=== PATIENT | female | born 1995 | race Caucasian/White ===

== ENCOUNTER 2020-08-10 19:23 | Inpatient (IN) | payer BC, OTHER ==
[~2020-08-10 19:23] MED LIST: Iopamidol 370 76% 50 ML VIAL FS ONE; Iopamidol-370 76% 500 ML 1 ML ONE
[2020-08-10 20:02] LABS: #Lymphocytes 1.1 thou/uL (1.20-3.40); #Monocytes 0.9 thou/uL (0.11-0.59); #Neutrophils 17.7 thou/uL (1.40-6.50); %Eosinophils 0.1 % (0.0-10.0); %Lymphocytes 5.4 % (21.0-51.0); %Monocytes 4.8 % (0.0-10.0); %Neutrophils 89.7 % (42.0-75.0); Hemoglobin 14.3 g/dL (12.0-16.0); Mean Corpuscular HGB CONC 34.4 g/dL (32.0-36.0); Mean Platelet Volume 7.5 fL (7.4-10.4); Platelet Count 261 thou/uL (130-400); RBC Distribution Width 10.6 % (11.5-14.5); Red Blood Cell (RBC) Count 4.46 mill/uL (4.20-5.40); White Blood Cell (WBC) Count 19.7 thou/uL (4.8-10.8)
[2020-08-10] MEDS ORDERED: Ondansetron PF 4 MG/2 ML Vial ONE (20:08)
[2020-08-10] MEDS ORDERED: Morphine 4 MG/ML VIAL ONE ×3 (20:08→23:22)
[2020-08-10 20:09] LABS: Bilirubin Negative (Negative); Blood, Urine 2+ (Negative); Clarity Turbid (Clear); Glucose, Urine (Dipstick) Normal (Negative); Ketone, Urine 80 mg/dL (Negative); Leukocyte 75 Leu/uL (Negative); Nitrite Negative (Negative); Pregnancy Test - Urine (BHCG) Negative (Negative); Pregu Control Background? CLEAR/WHITE (CLR/WHITE); Pregu Control Bar Appear? YES (CONTROL BAR); Protein, Urine (Dipstick) 30 mg/dL (Neg-Trace); RBC/HPF 21-50 HPF (0-3); Specific Gravity 1.026 (1.002-1.036); Specific Gravity, Urine 1.026 (1.002-1.036); Squamous Epithelial 21-50 HPF (0-3); Urobilinogen Normal mg/dL (Less than 2); pH, Urine 7.5 (5.0-9.0)
[2020-08-10 20:19] LABS: Bacteria/HPF 1+ HPF (None Seen)
[2020-08-10 20:24] LABS: ALT (SGPT) 8 U/L (8-55); AST (SGOT) 13 U/L (5-34); Albumin 4.3 g/dL (3.5-5.0); Alkaline Phosphatase 73 U/L (40-110); Anion Gap 13 mmol/L (10-20); BUN (Urea Nitrogen) 10 mg/dL (7.0-18.7); Bilirubin, Total 0.9 mg/dL (0.2-1.2); Calc. Creatinine Clearance 0 mL/min (70-130); Carbon Dioxide 23 mmol/L (22-29); Chloride 103 mmol/L (98-107); Estimated GFR-MDRD Greater than 90; Globulin 2.9 g/dL (2.4-3.5); Glucose 139 mg/dL (70-105); Lipase 11 U/L (8-78); Potassium 3.5 mmol/L (3.5-5.1); Protein, Total 7.2 g/dL (6.0-8.3); Sodium 135 mmol/L (136-145)
--- NOTE | 2020-08-10 22:08 | CT ---
CT ABDOMEN AND PELVIS PERFORMED WITH INTRAVENOUS CONTRAST ENHANCEMENT: 08/10/20 HISTORY: Right lower quadrant abdominal pain. Diarrhea. The lung bases are clear. The liver and spleen show no focal abnormalities. The pancreas and gallbladder regions appear unremar kable. Right and left adrenal glands and right and left kidneys are normal in size. No significant periaorti c or mesenteric adenopathy. CT OF PELVIS PERFORMED WITH CONTRAST ENHANCEMENT: Inflammatory change is seen associated with the appendix. No abscess or fluid collection. IMPRESSION: CT findings compatible with appendicitis. POS: SANNA
[2020-08-10] MEDS ORDERED: Piperacillin/Tazobactam 3.375 GM VIAL ONE ×2 (23:18)
[2020-08-11] MEDS ORDERED: Morphine 2 MG/ML VIAL SLOW IVP PRN ×2 (00:37→17:32)
[2020-08-11] MEDS ORDERED: Ondansetron PF 4 MG/2 ML Vial IVP PRN (00:45)
[2020-08-11] MEDS ORDERED: Ondansetron ODT 4 MG TAB SL PRN (00:45)
[2020-08-11 00:49] VITALS: BMI 21.4
[2020-08-11] MEDS: Morphine 4 MG/ML VIAL SLOW IVP PRN ×2 (00:55→09:32)
[2020-08-11] MEDS: Lactated Ringer's 1,000 ML IV SCH ×2 (01:00→09:37)
[2020-08-11 04:45] VITALS: TEMP 98.7
[2020-08-11] MEDS ORDERED: Piperacillin/Tazobactam 3.375 GM in Sodium Chloride 0.9% 100 ML IVPB SCH (06:00)
[2020-08-11 07:42] VITALS: BP 118/74
[2020-08-11 08:03] LABS: SARS-CoV-2 NAA Rapid Test Not Detected (NotDetected)
--- NOTE | 2020-08-11 08:04 | PDOC.H&P ---
- History & Physical Encounter Time: 08/11/20 Encounter Time: 07:57 Ms. Leonard Christianson is a 24 year old female that presented to the ED last night around 7 PM due to abdominal pain, vomiting, and diarrhea. She reports that her pain started yesterday morning around 10 AM and felt like gas pains and was sharp/stabbing in quality. She tried to take Mag Citrate and stool softeners to alleviate the pain, but it did not help. She rated her pain at 6/10 at that time. The pain remained constant throughout the day and was primarily localized around her umbilicus. Toward the evening she began having nausea, vomiting, and diarrhea. She describes the vomit as just having whatever she had eaten for breakfast and denies any blood in the vomit. Her pain had increased to a 9/10 at this time and moved to her RLQ, and that's when she came to the ER. She denies having any fevers over the course of this event and has not had any similar events previously. She deniese radiation of her pain, hematochezia, and hematemesis She has an unremarkable personal medical history. She has a family history of hypertension on her maternal side of the family. Her surgical history includes an ACL repair due to an avulsion fracture in a skiing accident. She denies any other hospitalizations. She denies smoking and using recreational drugs. She drinks occasionally. 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 She is not taking any medications currently and is allergic to promethazine. She has been NPO since yesterday evening. Overnight her pain was able to be managed with morphine and she was able to sleep. She remained afebrile and denied any nausea or vomiting overnight. She does report having some diarrhea overnight. Physical Exam - Physical Exam General Appearance: no apparent distress Eyes, Ears, Nose, Throat Exam: PERRL/EOMI Respiratory: chest non-tender, normal breath sounds, no respiratory distress Cardiovascular/Chest: normal peripheral pulses, regular rate, rhythm, no edema Gastrointestinal/Abdominal: normal bowel sounds, soft, guarding (voluntary guarding), tenderness (RLQ tenderness around McBurney's point radiating to the umbilicus), other (positive Rovsing's sign) Skin Exam: normal color
[2020-08-11] MEDS ORDERED: FLU VACC QS2020-21(6MOS UP)/PF 60 MCG/0.5 ML SYRINGE IM ONE (09:00)
--- NOTE | 2020-08-11 09:36 | HP ---
CHIEF COMPLAINT: Right lower quadrant abdominal pain. HISTORY OF PRESENT ILLNESS: The patient is a previously healthy 24-year-old white female. She had onset of pain yesterday morning about 10 o'clock. It progressed throughout the day. The pain initially was periumbilical and radiated towards the right lower quadrant. She developed nausea and vomiting and presented to the emergency room. In the emergency room, she was noted to have significant leukocytosis and a CT scan was obtained, which was felt to be consistent acute appendicitis. She was given intravenous antibiotics, made n.p.o. and given fluid rehydration, admitted to my service. This morning, she tells me she feels much better. She specifically denies any urinary symptoms. PAST MEDICAL HISTORY: Otherwise unremarkable. PAST SURGICAL HISTORY: Knee surgery for ACL repair. MEDICATIONS: None. ALLERGIES: PROMETHAZINE. PERSONAL AND SOCIAL HISTORY: She is single with no children. 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 She does not smoke and drinks alcohol occasionally. REVIEW OF SYSTEMS: A 10 system review is otherwise negative. FAMILY HISTORY: Noncontributory. PHYSICAL EXAMINATION: VITAL SIGNS: She is afebrile with normal vital signs this morning. GENERAL: She is well-developed, well-nourished, pleasant white female, resting in bed and in no acute distress. Mother is present at bedside. HEAD, EYES, EARS, NOSE, AND THROAT: Unremarkable. NECK: Supple without mass or tenderness. LUNGS: Clear to auscultation throughout. CARDIAC: Regular rate and rhythm without murmur. ABDOMEN: Soft with normoactive bowel sounds. She has a mild Rovsing sign and she does have tenderness to deeper palpation on the right lower quadrant, but without significant guarding. EXTREMITIES: Unremarkable. LABORATORY DATA: White blood cell count is elevated at 19.7, hemoglobin is normal at 14. She does have left shift. Her comprehensive metabolic panel is essentially unremarkable. Her urinalysis reveals turbid urine with 20-50 white blood cells, however, she also has elevated squamous cells, potentially indicating a dirty sample. She tells me this was a clean-catch. Her test is negative. ASSESSMENT: The patient with examination consistent with appendicitis. Her CT scan is a little more difficult to interpret than a typical appendicitis. I discussed with her the possibility that this could be a urinary etiology of her discomfort, however, I would still recommend a laparoscopic appendectomy. I discussed the operation in detail with the patient as well as potential risks. She understands and agrees to proceed with surgery. This has been scheduled for today. Job ID: [id number]
[2020-08-11] MEDS ORDERED: Lidocaine 1% PF 5 ML VIAL ONE (11:14)
[2020-08-11] MEDS ORDERED: Rocuronium Bromide 10 MG/ML (10ML VIAL) ONE (11:14)
[2020-08-11] MEDS ORDERED: Succinylcholine Chloride 20 MG/ML 10 ml SYRINGE FS ONE (11:14)
[2020-08-11] MEDS ORDERED: PROPOFOL 200 MG/20 ML VIAL ONE (11:14)
[2020-08-11] MEDS ORDERED: Dexamethasone 20 MG/5 ML VIAL ONE (11:14)
[2020-08-11] MEDS ORDERED: Glycopyrrolate 0.2 MG/ML 5 ML SYRINGE ONE (11:14)
[2020-08-11] MEDS ORDERED: Ondansetron PF 4 MG/2 ML Vial ONE (11:14)
[2020-08-11] MEDS ORDERED: Fentanyl 100 MCG/2 ML VIAL ONE ×2 (12:43→14:34)
[2020-08-11] MEDS ORDERED: Bupivacaine/Epinephrine 0.25% 30 ML VIAL ONE (12:44)
[2020-08-11] MEDS ORDERED: Piperacillin/Tazobactam 3.375 GM VIAL ONE (12:55)
[2020-08-11] MEDS ORDERED: Sodium Chloride 0.9% 100 ML ONE (12:55)
[2020-08-11] MEDS ORDERED: Meperidine HCl/PF 25 MG/ML VIAL SLOW IVP PRN (14:07)
[2020-08-11] MEDS ORDERED: Ondansetron HCl/PF 4 MG/2 ML Vial IVP PRN (14:07)
[2020-08-11] MEDS ORDERED: Meperidine HCl/PF 25 MG/ML VIAL ONE (14:27)
[2020-08-11] MEDS ORDERED: HYDROcodone/Acetaminophen 7.5/325 mg Tablet PO PRN ×2 (17:34)
--- NOTE | 2020-08-12 09:28 | OP ---
DATE OF PROCEDURE: 08/11/2020 PREOPERATIVE DIAGNOSIS: Acute appendicitis. POSTOPERATIVE DIAGNOSIS: Acute appendicitis. PROCEDURE PERFORMED: Laparoscopic appendectomy. ANESTHESIA: General endotracheal. INDICATIONS: The patient is a 24-year-old white female. She presented to the hospital with findings consistent with acute appendicitis and was taken to the operating room at this time for appendectomy. DESCRIPTION OF OPERATION: Informed consent was obtained. The patient was taken to the operating room, where general endotracheal anesthesia was obtained with the patient in supine position. Abdomen was prepped with ChloraPrep and draped in sterile fashion. Local anesthetic was infiltrated. A 5 mm infraumbilical incision was created, through which a Veress needle was passed in the peritoneal cavity and pneumoperitoneum was established using carbon dioxide up to pressure of 15 mmHg. A 5 mm trocar port site was passed through the same incision. Laparoscopic camera was passed through this port. Under direct vision, 2 additional ports were placed including a 5 mm left lower quadrant port and a 12 mm suprapubic port. Attention was turned to the abdominal cavity. There was noted to be some bloody appearing fluid in the pelvis. This was aspirated. There was no evidence of purulence. At that point, placed her into a significant Trendelenburg position and examined the pelvic organs. There were no adhesions of bowel within the pelvis. She did have a fairly redundant sigmoid colon. The uterus, fallopian tubes, and ovaries were all visualized and found to be entirely within normal limits. There was no cystic structures noted on either ovary and no evidence of infection involving either fallopian tube. Attention was turned to the appendix. The patient had obvious appendicitis with serosal changes and pending gangrene. There was no evidence of perforation or purulence. The entire appendix was markedly dilated and inflamed and very obviously associated with acute appendicitis. Mesoappendix was grasped and taken down using electrocautery to skeletonize the base of the appendix. This was divided between 2 separate Endoloop ties of PDS. The appendiceal stump was cauterized. The appendix was placed in a specimen retrieval sac and removed through the suprapubic port. The fascia was then closed with 0 Vicryl suture using a GraNee needle. The pelvis and right lower quadrant were thoroughly irrigated. All irrigant was aspirated. I inspected the remainder of the abdomen. The gallbladder was distended, but noninflamed. There was no evidence of purulence or bloody fluid elsewhere within the abdominal cavity. There were no adhesions or inflammatory changes elsewhere. All ports and instruments were removed under direct vision. Pneumoperitoneum was carefully evacuated. A 0.25% Marcaine with epinephrine was infiltrated in each port site. Skin edges approximated with 4-0 Monocryl subcuticular suture. Dermabond was placed externally. There were no complications. The patient tolerated the procedure well and was taken to recovery room in stable condition. Job ID: [id number]
== END 2020-08-11 18:35 | disposition home or self-care (01) | DRG 343 ==
LOC: ERS 19:23 → SURG A 23:00 → ERS 08-11 00:29 → SURG A 08-11 00:38
PROVIDERS: ADMIT Specialist; ATTEND Specialist
PROC: 3E02340 Introduction of Influenza Vaccine into Muscle, Percutaneous Approach (ICD-10-PCS; principal; 2020-08-11)
PROC: 0DTJ4ZZ Resection of Appendix, Percutaneous Endoscopic Approach (ICD-10-PCS; 2020-08-11)
DX: K35.30 Acute appendicitis with localized peritonitis, without perforation or gangrene (principal); Z20.828 Contact with and (suspected) exposure to other viral communicable diseases; Z23 Encounter for immunization; Z88.8 Allergy status to other drugs, medicaments and biological substances
CPT/HCPCS: 74177; 80053; 81003; 81015; 81025; 83690; 85025; 88304; 90471; 90662; G0008; J2175; J2270; J2405; J2543; J3010; J3490; Q9967; U0002